=== PATIENT | female | born 1925 | race African-American/Black ===

== ENCOUNTER 2017-04-05 14:39 | Inpatient (IN) | payer MEDICARE, MEDICAID ==
[~2017-04-05] VITALS: Ht 160 cm; Wt 53.5 kg
[~2017-04-05 14:39] MED LIST: ALBU05 IH; AMLO5TAB4 PO; AZTREONAM IV; BISO5TAB13 PO; ESOM20CA PO; MAGN400C PO; PREG50CA PO; SIMV20TA6 PO; TIZA4TAB4 PO
[2017-04-05] MEDS ORDERED: SODIUM CHLORIDE 0.9% 500 ML IV ONE (17:08)
[2017-04-05 17:30] LABS: BASOPHILS % 0.4 % (0.0-2.0); EOSINOPHILS % 3.2 % (0.0-5.0); HEMATOCRIT. 27.4 % (36.0-48.0); HEMOGLOBIN. 9.3 g/dL (12.0-16.0); LYMPHOCYTES % 17.4 % (20.0-50.0); MEAN CORPUSCULAR HEMOGLOBIN 26.4 pg (28.0-32.0); MEAN CORPUSCULAR VOLUME 77.7 fL (81.0-99.0); MONOCYTES % 13.1 % (2.0-8.0); NEUTROPHILS % 65.9 % (40.0-76.0); PLATELET 456 x1000/uL (130-400); RED BLOOD CELL COUNT 3.53 mill/uL (4.2-5.4)
[2017-04-05 17:39] LABS: AMMONIA 15 uMol/L (<32)
[2017-04-05 17:43] LABS: CARBON DIOXIDE 28 mEq/L (21-32); CHLORIDE 81 mEq/L (98-107); ETHANOL BLOOD < 10 mg/dL
[2017-04-05 17:46] LABS: CREATINE KINASE 74 IU/L (26-192)
[2017-04-05 22:16] LABS: CLARITY URINE CLEAR (CLEAR); COLOR URINE YELLOW (YELLOW); GLUCOSE URINE NEGATIVE (NEGATIVE); KETONES URINE NEGATIVE (NEGATIVE); LEUKOCYTE ESTERASE URINE 2+ (NEGATIVE); NITRITE URINE NEGATIVE (NEGATIVE); OCCULT BLOOD URINE 2+ (NEGATIVE); PROTEIN URINE NEGATIVE (NEGATIVE); SPECIFIC GRAVITY URINE 1.007 (1.005-1.030); UROBILINOGEN URINE 0.2 E.U./dL (0.2-1.0)
[2017-04-05 22:35] LABS: *AMPHETAMINES SCREEN URINE NEGATIVE (NEGATIVE); *BARBITURATES SCREEN URINE NEGATIVE (NEGATIVE); *BENZODIAZEPINES SCREEN URINE NEGATIVE (NEGATIVE); *COCAINE SCREEN URINE NEGATIVE (NEGATIVE); CANNABINOID URINE SCREEN NEGATIVE (NEGATIVE); METHADONE URINE SCREEN NEGATIVE (NEGATIVE); OPIATES URINE SCREEN NEGATIVE (NEGATIVE); PHENCYCLIDINE URINE SCREEN NEGATIVE (NEGATIVE)
[2017-04-06 03:10] VITALS: BP 141/59
[2017-04-06 04:00] VITALS: BP 148/50
[2017-04-06] MEDS ORDERED: DIPH25CA83 PO (05:04)
[2017-04-06] MEDS ORDERED: CLAR10 PO (05:04)
[2017-04-06] MEDS ORDERED: DOCU-150 PO (05:04)
[2017-04-06] MEDS ORDERED: MEMA10TA11 PO (05:04)
[2017-04-06] MEDS ORDERED: MAGN400T27 PO (05:04)
[2017-04-06] MEDS ORDERED: BACL-141 PO (05:04)
[2017-04-06] MEDS ORDERED: SODIUM CLORIDE PO (05:04)
[2017-04-06] MEDS ORDERED: ASPI-986 PO (05:04)
[2017-04-06] MEDS ORDERED: ACET-2178 PO (05:04)
[2017-04-06] MEDS ORDERED: LORA2VIA33 PO (05:04)
[2017-04-06] MEDS ORDERED: AMLO5TAB4 PO (05:04)
[2017-04-06] MEDS ORDERED: CLON0.1T PO (05:04)
[2017-04-06] MEDS ORDERED: IPRA3AMP9 INH (05:04)
[2017-04-06 08:00] VITALS: BP 116/55
[2017-04-06] MEDS: ENOXAPARIN 30MG/0.3ML SYR SUBCUT SCH ×2 (09:00→09:48)
[2017-04-06 11:13] LABS: BASOPHILS % 0.5 % (0.0-2.0); EOSINOPHILS % 2.1 % (0.0-5.0); HEMATOCRIT. 29.6 % (36.0-48.0); LYMPHOCYTES % 13.5 % (20.0-50.0); MEAN CORPUSCULAR HEMOGLOBIN 26.2 pg (28.0-32.0); MEAN CORPUSCULAR VOLUME 77.2 fL (81.0-99.0); MEAN PLATELET VOLUME 6.3 fl (7.4-10.4); MONOCYTES % 11.3 % (2.0-8.0); NEUTROPHILS % 72.6 % (40.0-76.0); PLATELET 473 x1000/uL (130-400); RED BLOOD CELL COUNT 3.83 mill/uL (4.2-5.4); RED CELL DISTRIBUTION WIDTH 19.2 % (11.6-14.6)
[2017-04-06 11:27] LABS: CARBON DIOXIDE 26 mEq/L (21-32); CHLORIDE 87 mEq/L (98-107)
[2017-04-06 12:00] VITALS: BP 114/47
[2017-04-06 16:00] VITALS: BP 144/63
[2017-04-06 20:00] VITALS: BP 122/59
[2017-04-07] VITALS: BP 127/52
[2017-04-07] MEDS ORDERED: DEXT 5%/0.9% NACL 1,000 ML IV SCH (03:30)
[2017-04-07 04:00] VITALS: BP 139/79
[2017-04-07 05:47] LABS: BASOPHILS % 0.7 % (0.0-2.0); EOSINOPHILS % 4.4 % (0.0-5.0); HEMATOCRIT. 28.2 % (36.0-48.0); HEMOGLOBIN. 9.7 g/dL (12.0-16.0); LYMPHOCYTES % 16.3 % (20.0-50.0); MEAN CORPUSCULAR HEMOGLOBIN 26.5 pg (28.0-32.0); MEAN CORPUSCULAR VOLUME 77.3 fL (81.0-99.0); MEAN PLATELET VOLUME 6.4 fl (7.4-10.4); MONOCYTES % 12.2 % (2.0-8.0); NEUTROPHILS % 66.4 % (40.0-76.0); PLATELET 470 x1000/uL (130-400); RED BLOOD CELL COUNT 3.64 mill/uL (4.2-5.4); RED CELL DISTRIBUTION WIDTH 18.7 % (11.6-14.6)
[2017-04-07 06:18] LABS: CARBON DIOXIDE 26 mEq/L (21-32); CHLORIDE 85 mEq/L (98-107)
[2017-04-07 08:00] VITALS: BP 136/57
[2017-04-07] MEDS: DEXT 5%/0.9% NACL 1,000 ML IV SCH ×2 (09:45→23:14)
[2017-04-07] MEDS: ENOXAPARIN 30MG/0.3ML SYR SUBCUT SCH (09:52)
[2017-04-07] MEDS ORDERED: LACTULOSE 20G/30ML UDC PO NR (10:15)
[2017-04-07 11:07] LABS: PREALBUMIN 17.8 mg/dL (20.0-40.0)
[2017-04-07 12:11] VITALS: BP 139/59
[2017-04-07] MEDS: HYDROCODONE/ACETAMINOPHEN 5/325MG TABLET PO PRN ×2 (12:49→18:06)
[2017-04-07] MEDS: DOCUSATE SODIUM 100MG CAPSULE PO SCH (16:08)
[2017-04-07 16:22] VITALS: BP 135/75
[2017-04-07 20:00] VITALS: BP 131/64
[2017-04-08] VITALS: BP 129/60
[2017-04-08 04:00] VITALS: BP 130/88
[2017-04-08] MEDS ORDERED: DOCUSATE SODIUM 100MG CAPSULE PO SCH (07:45)
[2017-04-08] MEDS ORDERED: DIPHENHYDRAMINE 25MG CAPSULE PO PRN (07:45)
[2017-04-08] MEDS ORDERED: IPRATROPIUM/ALBUTEROL 0.5-3(2.5)MG/3ML NEB HHN PRN (07:45)
[2017-04-08] MEDS ORDERED: BACLOFEN 10MG TABLET PO PRN (07:45)
[2017-04-08] MEDS ORDERED: ACETAMINOPHEN 325MG TABLET PO PRN (07:45)
[2017-04-08] MEDS ORDERED: CLONIDINE 0.1MG TABLET PO PRN (07:45)
[2017-04-08 08:00] VITALS: BP 146/57
[2017-04-08] MEDS ORDERED: AMLODIPINE 5MG TABLET PO SCH (09:00)
[2017-04-08] MEDS: FERROUS SULFATE 325MG TABLET PO SCH (09:02)
[2017-04-08] MEDS: MAGNESIUM OXIDE 400MG TABLET PO SCH (09:02)
[2017-04-08] MEDS: LORATADINE 10MG TABLET PO SCH (09:02)
[2017-04-08] MEDS: DOCUSATE SODIUM 100MG CAPSULE PO SCH ×2 (09:02→18:00)
[2017-04-08] MEDS: MEMANTINE HCL 5MG TABLET PO SCH (09:03)
[2017-04-08] MEDS: ASPIRIN 325MG TABLET PO SCH (09:03)
[2017-04-08] MEDS: AMLODIPINE 5MG TABLET PO SCH ×2 (09:03→20:35)
[2017-04-08] MEDS: ENOXAPARIN 30MG/0.3ML SYR SUBCUT SCH (09:04)
[2017-04-08] MEDS: HYDROCODONE/ACETAMINOPHEN 5/325MG TABLET PO PRN ×2 (09:05→18:01)
[2017-04-08 09:37] LABS: BASOPHILS % 0.5 % (0.0-2.0); EOSINOPHILS % 3.5 % (0.0-5.0); HEMATOCRIT. 28.8 % (36.0-48.0); HEMOGLOBIN. 9.8 g/dL (12.0-16.0); LYMPHOCYTES % 10.3 % (20.0-50.0); MEAN CORPUSCULAR HEMOGLOBIN 26.9 pg (28.0-32.0); MEAN CORPUSCULAR VOLUME 78.6 fL (81.0-99.0); MEAN PLATELET VOLUME 6.8 fl (7.4-10.4); MONOCYTES % 10.7 % (2.0-8.0); PLATELET 488 x1000/uL (130-400); RED BLOOD CELL COUNT 3.67 mill/uL (4.2-5.4); RED CELL DISTRIBUTION WIDTH 18.8 % (11.6-14.6)
[2017-04-08 09:54] LABS: CARBON DIOXIDE 25 mEq/L (21-32); CHLORIDE 92 mEq/L (98-107)
[2017-04-08 15:51] LABS: CLARITY URINE CLOUDY (CLEAR); COLOR URINE YELLOW (YELLOW); GLUCOSE URINE NEGATIVE (NEGATIVE); KETONES URINE NEGATIVE (NEGATIVE); LEUKOCYTE ESTERASE URINE 3+ (NEGATIVE); NITRITE URINE NEGATIVE (NEGATIVE); OCCULT BLOOD URINE 3+ (NEGATIVE); PH URINE 7.5 (4.5-8.0); PROTEIN URINE TRACE (NEGATIVE); SPECIFIC GRAVITY URINE 1.008 (1.005-1.030); UROBILINOGEN URINE 0.2 E.U./dL (0.2-1.0)
[2017-04-08 16:00] VITALS: BP 134/66
[2017-04-08] MEDS: DEXT 5%/0.9% NACL 1,000 ML IV SCH (19:26)
[2017-04-08 20:00] VITALS: BP 143/87
[2017-04-08] MEDS: ALBUTEROL (0.083%) 2.5MG/3ML NEB HHN SCH (21:04)
[2017-04-09] VITALS (9 sets, daily range): BP systolic 101–192; BP diastolic 47–131
[2017-04-09] MEDS: ALBUTEROL (0.083%) 2.5MG/3ML NEB HHN SCH ×4 (01:52→20:17)
[2017-04-09 07:03] LABS: BASOPHILS % 0.4 % (0.0-2.0); EOSINOPHILS % 3.9 % (0.0-5.0); HEMATOCRIT. 31.2 % (36.0-48.0); HEMOGLOBIN. 10.5 g/dL (12.0-16.0); MEAN CORPUSCULAR HEMOGLOBIN 26.6 pg (28.0-32.0); MEAN CORPUSCULAR VOLUME 78.8 fL (81.0-99.0); MEAN PLATELET VOLUME 6.2 fl (7.4-10.4); MONOCYTES % 8.9 % (2.0-8.0); NEUTROPHILS % 71.8 % (40.0-76.0); PLATELET 456 x1000/uL (130-400); RED BLOOD CELL COUNT 3.97 mill/uL (4.2-5.4)
[2017-04-09 08:19] LABS: CARBON DIOXIDE 25 mEq/L (21-32); CHLORIDE 93 mEq/L (98-107); PHOSPHORUS 3.3 mg/dL (2.5-4.9)
[2017-04-09] MEDS: LORATADINE 10MG TABLET PO SCH (08:36)
[2017-04-09] MEDS: DOCUSATE SODIUM 100MG CAPSULE PO SCH ×2 (08:36→17:34)
[2017-04-09] MEDS: FERROUS SULFATE 325MG TABLET PO SCH (08:36)
[2017-04-09] MEDS: AMLODIPINE 5MG TABLET PO SCH ×2 (08:36→21:00)
[2017-04-09] MEDS: MAGNESIUM OXIDE 400MG TABLET PO SCH (08:36)
[2017-04-09] MEDS: ASPIRIN 325MG TABLET PO SCH (08:36)
[2017-04-09] MEDS: MEMANTINE HCL 5MG TABLET PO SCH (08:36)
[2017-04-09] MEDS: ENOXAPARIN 30MG/0.3ML SYR SUBCUT SCH (08:36)
[2017-04-09] MEDS: SODIUM CHLORIDE 1000MG TABLET PO SCH ×3 (10:44→17:34)
[2017-04-09] MEDS ORDERED: LEVOFLOXACIN 500MG TABLET PO SCH (11:00)
[2017-04-09] MEDS: HYDROCODONE/ACETAMINOPHEN 5/325MG TABLET PO PRN (12:42)
[2017-04-09] MEDS: DEXT 5%/0.9% NACL 1,000 ML IV SCH (15:51)
[2017-04-09] MEDS ORDERED: [UNRECOGNIZED DRUG - OTHER] PO (23:07)
[2017-04-10] VITALS: BP 134/64
[2017-04-10] MEDS: ALBUTEROL (0.083%) 2.5MG/3ML NEB HHN SCH ×3 (01:01→14:48)
[2017-04-10 04:00] VITALS: BP 118/69
[2017-04-10 06:42] LABS: BASOPHILS % 0.5 % (0.0-2.0); EOSINOPHILS % 3.2 % (0.0-5.0); HEMATOCRIT. 27.9 % (36.0-48.0); HEMOGLOBIN. 9.4 g/dL (12.0-16.0); LYMPHOCYTES % 12.8 % (20.0-50.0); MEAN CORPUSCULAR HEMOGLOBIN 26.7 pg (28.0-32.0); MEAN CORPUSCULAR VOLUME 79.1 fL (81.0-99.0); MEAN PLATELET VOLUME 6.5 fl (7.4-10.4); MONOCYTES % 9.8 % (2.0-8.0); NEUTROPHILS % 73.7 % (40.0-76.0); PLATELET 397 x1000/uL (130-400); RED BLOOD CELL COUNT 3.53 mill/uL (4.2-5.4); RED CELL DISTRIBUTION WIDTH 18.5 % (11.6-14.6)
[2017-04-10 07:04] LABS: CARBON DIOXIDE 27 mEq/L (21-32); CHLORIDE 94 mEq/L (98-107); PHOSPHORUS 2.9 mg/dL (2.5-4.9)
[2017-04-10] MEDS: ASPIRIN 325MG TABLET PO SCH (07:48)
[2017-04-10] MEDS: MAGNESIUM OXIDE 400MG TABLET PO SCH (07:48)
[2017-04-10] MEDS: FERROUS SULFATE 325MG TABLET PO SCH (07:49)
[2017-04-10] MEDS: LORATADINE 10MG TABLET PO SCH (07:49)
[2017-04-10] MEDS: DOCUSATE SODIUM 100MG CAPSULE PO SCH ×2 (07:49→16:24)
[2017-04-10] MEDS: SODIUM CHLORIDE 1000MG TABLET PO SCH ×3 (07:49→16:24)
[2017-04-10] MEDS: AMLODIPINE 5MG TABLET PO SCH (07:49)
[2017-04-10] MEDS: ENOXAPARIN 30MG/0.3ML SYR SUBCUT SCH (07:50)
[2017-04-10 08:19] VITALS: BP 140/74
[2017-04-10] MEDS ORDERED: LEVOFLOXACIN 250MG TABLET PO SCH (11:00)
[2017-04-10 12:13] VITALS: BP 114/57
[2017-04-10] MEDS ORDERED: [UNRECOGNIZED DRUG - OTHER] IV (14:32)
[2017-04-10 16:15] VITALS: BP 105/58
== END 2017-04-10 19:45 | DRG 643 ==
LOC: ER 15:04 → ENRESERV 04-06 02:19 → 6WST 04-06 04:07
PROVIDERS: ADMIT Family Medicine; ATTEND Family Medicine
DX: E22.2 Syndrome of inappropriate secretion of antidiuretic hormone (principal); E43 Unspecified severe protein-calorie malnutrition; N39.0 Urinary tract infection, site not specified; J45.909 Unspecified asthma, uncomplicated; E78.5 Hyperlipidemia, unspecified; F03.90 Unspecified dementia, unspecified severity, without behavioral disturbance, psychotic disturbance, mood disturbance, and anxiety; G89.29 Other chronic pain; D64.9 Anemia, unspecified; M19.90 Unspecified osteoarthritis, unspecified site; B96.4 Proteus (mirabilis) (morganii) as the cause of diseases classified elsewhere; I12.9 Hypertensive chronic kidney disease with stage 1 through stage 4 chronic kidney disease, or unspecified chronic kidney disease; B95.2 Enterococcus as the cause of diseases classified elsewhere; K21.9 Gastro-esophageal reflux disease without esophagitis; K59.00 Constipation, unspecified; N18.9 Chronic kidney disease, unspecified; Z79.82 Long term (current) use of aspirin; Z79.899 Other long term (current) drug therapy; Z82.49 Family history of ischemic heart disease and other diseases of the circulatory system; Z90.710 Acquired absence of both cervix and uterus; Z68.20 Body mass index [BMI] 20.0-20.9, adult; Z88.0 Allergy status to penicillin; Z91.81 History of falling; Z98.49 Cataract extraction status, unspecified eye
CPT/HCPCS: 36415; 51702; 70450; 71010; 80048; 80053; 80061; 80305; 81001; 82140; 82270; 82533; 82550; 82570; 83540; 83550; 83735; 83880; 83930; 83935; 84100; 84134; 84300; 84443; 85025; 87077; 87086; 87186; 92610; 93005; 94640; 94664; 96360; 96361; 97162; 97530; 99285; C1893; G0482; J1650; J7030; J7040; J7042; J7611; A4315